=== PATIENT | female | born 1985 | race Native Hawaiian/Other Pacific Islander ===

== ENCOUNTER 2018-03-11 00:39 | Outpatient (CLI) | payer OTHER | END 2018-03-11 00:43 | disposition short-term general hospital (02) | LOC: AMB 00:39 | DX: R10.817 Generalized abdominal tenderness (principal) | CPT/HCPCS: A0425; A0427 ==

== ENCOUNTER 2018-03-11 00:50 | Emergency (ER) | payer OTHER ==
[~2018-03-11] VITALS: Ht 167.6 cm; Wt 65.8 kg
[2018-03-11 01:27] LABS: PLATELET COUNT 311 K/uL (152-353)
[2018-03-11 01:48] LABS: POTASSIUM 4.3 mmol/L (3.6-5.2)
[2018-03-11 04:20] VITALS: BP 108/72; TEMP 98.4
== END 2018-03-11 04:38 | disposition home or self-care (01) ==
LOC: ED 00:50
PROVIDERS: Family Medicine
DX: R10.31 Right lower quadrant pain (principal); R31.9 Hematuria, unspecified; K82.8 Other specified diseases of gallbladder
CPT/HCPCS: 36415; 80053; 81000; 85027; 96365; 96374; 96375; 99284; J1885; J2175; J2405; Q9963

== ENCOUNTER 2021-01-17 11:23 | Emergency (ER) | payer OTHER ==
[~2021-01-17] VITALS: Ht 167.6 cm; Wt 97.5 kg
[2021-01-17 12:03] LABS: PLATELET COUNT 303 K/uL (152-353)
[2021-01-17 12:10] LABS: POTASSIUM 3.7 mmol/L (3.6-5.2)
[2021-01-17 18:01] VITALS: BP 110/66; TEMP 97.5
== END 2021-01-17 18:12 | disposition short-term general hospital (02) ==
LOC: ED 11:23
PROVIDERS: Family Medicine
DX: K80.00 Calculus of gallbladder with acute cholecystitis without obstruction (principal); Z11.52 Encounter for screening for COVID-19
CPT/HCPCS: 36415; 80053; 81000; 82150; 83690; 85027; 87635; 96365; 96375; 99284; J1885; J2175; J2405; J2543; J3490; Q9963; U0003

== ENCOUNTER 2023-02-24 06:26 | Emergency (ER) | payer OTHER ==
[~2023-02-24] VITALS: Ht 167.6 cm; Wt 90.7 kg
[2023-02-24 07:04] LABS: PLATELET COUNT 332 K/uL (152-353)
[2023-02-24 07:18] LABS: POTASSIUM 4.2 mmol/L (3.6-5.2)
[2023-02-24 13:05] VITALS: BP 126/81; TEMP 98.1
== END 2023-02-24 13:05 | disposition still patient (30) ==
LOC: ED 06:26
PROVIDERS: Family Medicine
DX: K80.20 Calculus of gallbladder without cholecystitis without obstruction (principal)
CPT/HCPCS: 36415; 80053; 81002; 81025; 82150; 83690; 85027; 93005; 96361; 96365; 96375; 96376; 99284; J1100; J1885; J2270; J2405; J2543